=== PATIENT | male | born 1950 | race African-American/Black ===

== ENCOUNTER 2016-06-19 20:40 | Inpatient (IN) | payer OTHER, MEDICAID ==
[~2016-06-19] VITALS: Ht 175.3 cm; Wt 70.8 kg
[2016-06-19 20:49] VITALS: BP 130/78
--- NOTE | 2016-06-19 21:02 | NUR ---
66 Y/O BIBA W/C/O PAIN ON L ABD SIDE S/P FALL. DENIES LOC, ALERT AND ORIENTED X 4. NO S/S OF RESP DISTRESS NOTED AT THE MOMENT. ER MD MADE AWARE.
--- NOTE | 2016-06-19 21:05 | NUR ---
JAMES BLS TO ER BED 1
[2016-06-19] MEDS ORDERED: KETOROLAC 60 MG/2 ML VIAL IM ONE (21:40)
--- NOTE | 2016-06-19 21:50 | NUR ---
PT TAKEN FOR CT SCAN VIA [facility].
--- NOTE | 2016-06-19 22:42 | NUR ---
PT RESTING IN BED, ON MONITOR, NO S/S OF DISTRESS NOTED AT THIS MOMENT. CURRENTLY AWATING FOR CT RESULTS.
[2016-06-19 23:28] LABS: BASOPHILS # (AUTO) 0.1 K/uL (0.00-0.22); EOSINOPHILS # (AUTO) 0.3 K/uL (0-0.4); NEUTROPHILS # (AUTO) 1.3 K/uL (1.8-7.7)
[2016-06-19 23:32] LABS: EOSINOPHILS % (AUTO) 7.1 % (0.0-4.0); HEMATOCRIT 41.7 % (36-52); HEMOGLOBIN 13.7 g/dL (12.0-18.0); LYMPHOCYTES % (AUTO) 44.8 % (20.5-51.1); MEAN CORPUSCULAR HEMOGLOBIN 31 pg (27-31); MEAN CORPUSCULAR HGB CONC 33 g/dL (33-37); MEAN CORPUSCULAR VOLUME 93 fL (80-94); MONOCYTES # (AUTO) 0.6 K/uL (0.8-1.0); MONOCYTES % (AUTO) 14.6 % (1.7-9.3); NEUTROPHILS % (AUTO) 30.5 % (42.2-75.2); PLATELET COUNT (AUTO) 141 K/uL (140-450); RED BLOOD CELL COUNT(AUTO) 4.48 MIL/uL (4.20-6.10); RED CELL DISTRIBUTION WIDTH 12.7 % (11.6-13.7); WHITE BLOOD COUNT (AUTO) 4.3 K/uL (4.8-10.8)
--- NOTE | 2016-06-19 23:35 | NUR ---
MOVED TOP ER BED 5 Addendum: 06/20/16 at 0034 by MEDDM MOVED TO ER BED 5
[2016-06-19 23:38] LABS: ANION GAP 9.1 (8-16); CALCIUM 8.2 mg/dL (8.5-10.1); CREATININE 1.2 mg/dL (0.6-1.3); POTASSIUM 4.1 mmol/L (3.5-5.1)
[2016-06-19 23:44] LABS: ALBUMIN 3.4 g/dL (3.4-5.0); TOTAL BILIRUBIN 0.5 mg/dL (0.0-1.0); TOTAL PROTEIN, SERUM 6.8 g/dL (6.4-8.2)
[2016-06-19 23:47] LABS: PARTIAL THROMBOPLASTIN TIME 27.2 secs (22-35.6); PROTHROMBIN TIME 9.9 secs (10.8-13.4)
[2016-06-19] MEDS ORDERED: ONDANSETRON 4 MG/2 ML VIAL IVP PRN (23:55)
[2016-06-19] MEDS ORDERED: ACETAMINOPHEN 325 MG TAB PO PRN (23:55)
[2016-06-19] MEDS ORDERED: MORPHINE SULFATE 2 MG/ML SYR IVP PRN (23:55)
--- NOTE | 2016-06-20 00:01 | NUR ---
PT UNABLE TO PROVIDE URINE IN ED. PER DR CRISTIN MTAA FOR PT TO PROVIDE WITH URINE SAMPLE ON FLOOR. RECEIVING NURSE WILL BE NOTIFY.
--- NOTE | 2016-06-20 00:05 | NUR ---
Patient will be admitted to care of DR DE OLIVEIRA. Admited to TELE. Will go to room 108B. Belongings list completed. Report to JACQUES MARTINEZ.
--- NOTE | 2016-06-20 00:05 | NUR ---
RECEIVED PT ONTO UNIT IN ROOM 108B. PT AMBULATES WITH CANE AND WITH ASSISTANCE. DENIES DIZZINESS. SHIFT ASSESSMENT DONE AT THIS TIME. PT IS A/O X3, STABLE CONDITION. NO SIGNS OF RESPIRATORY DISTRESS. DENIES CHEST PAIN, SOB, N/V/D, AND OR ANY PAIN AT THIS TIME. VITAL SIGNS ARE STABLE, PT ON ROOM AIR WITH OXYGEN SATURATION AT 99%, RR 18 AND AFEBRILE. LUNG SOUNDS ARE CLEAR, AND BOWEL SOUNDS ARE ACTIVE. SKIN INTACT. RT AC #20G, PATENT AND INTACT. DISCUSSED PLAN OF CARE WITH PT, VERBALIZED UNDERSTANDING. CALL LIGHT PLACED IN REACH. PT ORIENTED TO UNIT. WILL CONTINUE TO MONITOR PT. SAFETY PRECAUTIONS IMPLEMENTED.
[2016-06-20 00:15] VITALS: BP 136/62
[2016-06-20] MEDS ORDERED: BENA20TA PO (01:04)
--- NOTE | 2016-06-20 01:22 | NUR ---
SPOKE TO DR. MANE COVERING FOR [facility], VERIFIED ORDER FOR IVF TO BE 80ML/HR OF 1000ML OF NORMAL SALINE.
[2016-06-20] MEDS: HYDROcodone/APAP 5/325 MG 1 TAB TAB PO PRN ×2 (01:54→14:32)
--- NOTE | 2016-06-20 02:11 | NUR ---
PT SLEEPING, NO DISTRESS NOTED. CALL LIGHT WITHIN REACH. APPLIED SCD'S.
[2016-06-20] MEDS: NACL 0.9% 1,000 ML IV SCH ×3 (02:30→21:47)
--- NOTE | 2016-06-20 03:55 | NUR ---
PT VITAL SIGNS REMAIN STABLE. NO ACUTE DISTRESS NOTED. CALL LIGHT WITHIN REACH.
[2016-06-20 04:00] VITALS: BP 126/70
--- NOTE | 2016-06-20 06:00 | NUR ---
PT SLEEPING AT THIS TIME, NO DISTRESS NOTED. CALL LIGHT WITHIN REACH.
[2016-06-20 06:43] LABS: APPEARANCE,URINE CLOUDY (CLEAR); BLOOD, URINE NEGATIVE (NEGATIVE); COLOR,URINE YELLOW (YELLOW); LEUKOCYTE ESTERASE ,URINE 1+ (NEGATIVE); NITRITE, URINE NEGATIVE (NEGATIVE); PH,URINE 5.5 (5.0-9.0); PROTEIN,URINE NEGATIVE (NEGATIVE); UGLUCOSE NEGATIVE (NEGATIVE); UROBILINOGEN,URINE 0.2 EU/dL (0.2 - 1)
--- NOTE | 2016-06-20 07:10 | NUR ---
ENDORSED PT TO DONALD HANNA AT PT BEDSIDE FOR CONTINUITY OF CARE. PT NOTED STABLE.
[2016-06-20 07:11] LABS: ANION GAP 9.6 (8-16); CALCIUM 7.9 mg/dL (8.5-10.1); CARBON DIOXIDE 27.4 mmol/L (21-32); CREATININE 1.1 mg/dL (0.6-1.3)
[2016-06-20 07:18] LABS: MAGNESIUM 2.1 mg/dL (1.8-2.4); PHOSPHORUS 3.4 mg/dL (2.5-4.9)
[2016-06-20 07:30] LABS: BILIRUBIN,URINE NEGATIVE (NEGATIVE)
--- NOTE | 2016-06-20 07:30 | NUR ---
RECEIVED PT RESTING COMFORTABLY IN BED, AAOX4, ABLE TO VERBALIZE NEEDS; RESPIRATIONS EVEN AND UNLABORED ON ROOM AIR; NO C/O DISTRESS, SOB OR CP AT THIS TIME. IVF INFUSING WELL TO RIGHT AC, SITE ASYMPTOMATIC. ROUTINE/PLAN OF CARE DISCUSSED AND REVIEWED, PT VERBALIZES UNDERSTANDING AND COMPLIANCE. SAFETY PRECAUTIONS OBSERVED AND MAINTAINED. ENCOURAGED PT TO CALL FOR ASSISTANCE NEEDED.
[2016-06-20 07:36] LABS: RBC,URINE 0-5 (RARE) /HPF (0-5); WBC,URINE >25 (MANY) /HPF (0-5)
[2016-06-20 07:37] LABS: BACTERIA,URINE 2+ /HPF (None Seen); MUCUS,URINE 1+ /LPF (None Seen); SQUAMOUS EPITHELIAL CELL,UR >10 (MANY) /LPF (0-3 (FEW)); URINE AMORPHOUS URATE 3+ /HPF (None Seen)
--- NOTE | 2016-06-20 07:54 | NUR ---
PATIENT HAS BEEN SCREENED AND CATEGORIZED MODERATE NUTRITION RISK. PATIENT WILL BE SEEN WITHIN 3-5 DAYS OF ADMISSION. 06/22/16-06/24/[address]
[2016-06-20 08:16] VITALS: BP 141/73
--- NOTE | 2016-06-20 09:15 | NUR ---
VSS; MEDICATED WITH MORPHINE IVP FOR C/O LEFT HIP PAIN, SEE PAIN ASSESSMENT. WILL CONTINUE TO MONITOR.
[2016-06-20 12:42] VITALS: BP 129/72
--- NOTE | 2016-06-20 13:30 | NUR ---
CM NOTE INITIAL REVIEW FAXED TO [facility] / FAX# [phone], ATTN: JENELLE [phone], OPT. 1 PER MILENA, STATION CASHIER, [facility] TO CONTACT CM FOR REVIEWS. REF# [id number]
[2016-06-20 14:31] LABS: AMPHETAMINE, URINE NEG. ng/ml (NEG <=1000); BARBITURATE, URINE NEG. ng/ml (NEG <=200); BENZODIAZEPINE, URINE NEG. ng/mL (NEG <=200); CANNABINOID, URINE POS. ng/mL (NEG <=50); COCAINE, URINE NEG. ng/mL (NEG <=300); OPIATE, URINE NEG. ng/mL (NEG <=2000); PHENCYCLIDINE SCREEN,URINE NEG. ng/mL (NEG <=25)
[2016-06-20 14:33] LABS: CHOL/HDL RATIO 2.3 (1-4.5)
--- NOTE | 2016-06-20 14:35 | NUR ---
ADMINISTERED NORCO ORDERED FOR C/O RECURRING LEFT HIP PAIN, SEE PAIN ASSESSMENT. DISCUSSED ALTERNATIVE MEASURES OF PAIN MANAGEMENT; WILL CONTINUE TO MONITOR.
[2016-06-20 14:42] LABS: FREE T4 (FREE THYROXINE) 1.13 ng/dL (0.76-1.46); THYROID STIMULATING HORMONE 4.2 uIU/mL (0.34-3.76)
--- NOTE | 2016-06-20 14:58 | NUR ---
LAB RESULTS DISCUSSED WITH . NO NEW ORDER RECEIVED AT THIS TIME.
[2016-06-20 16:00] VITALS: BP 121/88
[2016-06-20] MEDS: PNEUMOCOCCAL VACCINE 23 MCG/0.5 ML VIAL IMVAC ONE ×2 (18:10→18:23)
[2016-06-20] MEDS: INFLUENZA VIRUS VACCINE QUAD 0.5 ML SYR IMVAC ONE ×2 (18:10→18:23)
[2016-06-20] MEDS ORDERED: PNEUMOCOCCAL VACCINE 23 MCG/0.5 ML VIAL IMVAC SCH (18:15)
[2016-06-20] MEDS ORDERED: INFLUENZA VIRUS VACCINE QUAD 0.5 ML SYR IMVAC SCH (18:15)
--- NOTE | 2016-06-20 19:23 | NUR ---
CONDITION STABLE, ENDORSED PLAN OF CARE TO [employer] SALES ENGINEER.
--- NOTE | 2016-06-20 19:30 | NUR ---
RECEIVED PT IN STABLE CONDITION FROM ND NURSE. AWAKE,ALERT AND ORIENTED X4. ON TELE MONITOR. NO ACUTE DISTRESS NOTED. DENIES ANY PAIN AT THIS TIME. BRP WITH CANE. PLAN OF CARE DISCUSSED AND VERBALIZED UNDERSTANDING. IVF INFUSING WELL ON THE RT AC #20. CLEAR AND PATENT. CALL LIGHT AND URINAL PLACED WITHIN EASY REACH. WILL CONTINUE TO MONITOR.
[2016-06-20 20:00] VITALS: BP 130/80
--- NOTE | 2016-06-20 21:54 | NUR ---
ROCEPHIN IVPB STARTED ORDERED . WILL MONITOR FOR ANY REACTION.
[2016-06-20] MEDS ORDERED: cefTRIAXone 1,000 MG VIAL ONE (21:55)
--- NOTE | 2016-06-20 22:54 | NUR ---
NO ALLERGIC REACTION NOTED WITH THE ROCEPHIN IV.
[2016-06-21 00:10] VITALS: BP 116/69
[2016-06-21] MEDS: NACL 0.9% 1,000 ML IV SCH ×2 (00:53→14:04)
--- NOTE | 2016-06-21 02:00 | NUR ---
SLEEPING WELL AT THIS TIME. NO S/S FO ANY DISCOMFORT NOTED.
[2016-06-21 04:00] VITALS: BP 123/74
--- NOTE | 2016-06-21 06:00 | NUR ---
PT HAS BEEN STABLE DURING THE NIGHT. NO C/O ANY DISCOMFORT NOR PAIN NOTED.
[2016-06-21 06:43] LABS: ANION GAP 9.9 (8-16); CALCIUM 7.6 mg/dL (8.5-10.1); CARBON DIOXIDE 25.1 mmol/L (21-32)
[2016-06-21 06:49] LABS: ALBUMIN 2.9 g/dL (3.4-5.0); PHOSPHORUS 2.6 mg/dL (2.5-4.9)
[2016-06-21 07:05] LABS: RED BLOOD CELL COUNT(AUTO) 4.26 MIL/uL (4.20-6.10); WHITE BLOOD COUNT (AUTO) 4.6 K/uL (4.8-10.8)
[2016-06-21 07:06] LABS: HEMATOCRIT 39.7 % (36-52); HEMOGLOBIN 12.8 g/dL (12.0-18.0); MEAN CORPUSCULAR HEMOGLOBIN 30 pg (27-31); MEAN CORPUSCULAR HGB CONC 32 g/dL (33-37); MEAN CORPUSCULAR VOLUME 93 fL (80-94); PLATELET COUNT (AUTO) 130 K/uL (140-450); RED CELL DISTRIBUTION WIDTH 12.4 % (11.6-13.7)
--- NOTE | 2016-06-21 07:17 | NUR ---
ENDORSED PT IN STABLE CONDITION TO NURSE.
--- NOTE | 2016-06-21 07:30 | NUR ---
RECEIVED PT RESTING COMFORTABLY IN BED, AAOX4, ABLE TO VERBALIZE NEEDS; RESPIRATIONS EVEN AND UNLABORED ON ROOM AIR; NO C/O DISTRESS, SOB OR CP AT THIS TIME. IVF INFUSING WELL TO L FA, SITE ASYMPTOMATIC. ROUTINE/PLAN OF CARE DISCUSSED AND REVIEWED, PT VERBALIZES UNDERSTANDING AND COMPLIANCE. SAFETY PRECAUTIONS OBSERVED AND MAINTAINED. ENCOURAGED PT TO CALL FOR ASSISTANCE NEEDED.
[2016-06-21 07:59] VITALS: BP 153/75
[2016-06-21 08:14] LABS: BAND % (MANUAL) 1 % (0-8); EOSINOPHILS % (MANUAL) 8 % (0-4); LYMPHOCYTES % (MANUAL) 33 % (20-46); MONOCYTES % (MANUAL) 12 % (5-12); NEUTROPHILS % (MANUAL) 46 (43-65)
[2016-06-21 08:15] LABS: BASOPHILS % (MANUAL) 0 % (0-2)
[2016-06-21 08:17] LABS: PLATELET ESTIMATE SLIGHTLY DECREASED
[2016-06-21] MEDS: BENAZEPRIL 20 MG TAB PO SCH (09:35)
[2016-06-21] MEDS: HYDROcodone/APAP 5/325 MG 1 TAB TAB PO PRN (09:46)
--- NOTE | 2016-06-21 09:52 | NUR ---
VS NOTED; ADMINISTERED ROUTINE MED ORDERED WITH EDUCATION; MEDICATED WITH NORCO PO FOR C/O LEFT HIP PAIN, SEE PAIN ASSESSMENT. DR JARAMILLO ON UNIT TO SEE PATIENT, ORDERS PENDING. WILL CONTINUE TO MONITOR.
--- NOTE | 2016-06-21 10:40 | NUR ---
PT EVALUATED BY DR JARAMILLO, DISCUSSED PT CONDITION AND PLAN OF CARE AT BEDSIDE, ALL QUESTIONS AND CONCERNS ADDRESSED BY MD. NEW ORDERS ACKNOWLEDGED AND CARRIED OUT.
[2016-06-21 12:00] VITALS: BP 128/65
[2016-06-21] MEDS: ALBUTEROL SULFATE/IPRATROPIU 3 ML SOL IH SCH ×2 (13:50→19:00)
--- NOTE | 2016-06-21 14:00 | NUR ---
PT RESTING COMFORTABLY. CONDITION REMAINS STABLE.
--- NOTE | 2016-06-21 14:49 | NUR ---
FAXED CONCURRENT REVIEW TO DENISE BURCIAGA [phone] PHONE [phone]
[2016-06-21 16:00] VITALS: BP 104/62
--- NOTE | 2016-06-21 16:00 | NUR ---
VS NOTED. PT RESTING COMFORTABLY IN BED. PT REMAINS IN STABLE CONDITION.
--- NOTE | 2016-06-21 19:23 | NUR ---
ENDORSED PLAN OF CARE TO NIGHT NURSE. CONDITION STABLE.
[2016-06-21] MEDS: BUDESONIDE 0.5 MG/2 ML NEBU INH SCH (19:29)
--- NOTE | 2016-06-21 19:30 | NUR ---
PATIENT REFUSED HHN THERAPY NO SOB NOTED CHIDI/RN NOTIFIED
--- NOTE | 2016-06-21 19:35 | NUR ---
PATIENT CURRENTLY RESTING IN BED WATCHING TV,DENIES PAIN AND DISCOMFORT,CONTINUES TO USE THE URINAL,AND CONTINUES TO HAVE SCD'S.WILL CONTINUE TO MONITOR.
[2016-06-21 20:00] VITALS: BP 96/57
--- NOTE | 2016-06-21 20:00 | NUR ---
Patient's Plan of Care was discussed and reviewed with VALUATION MANAGER: CHIDI CASTRO
--- NOTE | 2016-06-21 22:30 | NUR ---
PT STABLE WATCHING, TV DENIES PAIN AND DISCOMFORT. NEEDS MET WILL CONTINUE TO MONITOR.
--- NOTE | 2016-06-21 23:50 | NUR ---
PATIENT IS CURRENTLY SLEEPING CONTINUES TO HAVE SCD'S IN PLACE. WILL CONTINUE TO MONITOR.
[2016-06-22 00:22] VITALS: BP 106/59
--- NOTE | 2016-06-22 01:00 | NUR ---
PATIENT IS CURRENTLY RESTING IN BED IN NO DISTRESS WILL CONTINUE TO MONITOR.
[2016-06-22] MEDS: ALBUTEROL SULFATE/IPRATROPIU 3 ML SOL IH SCH ×3 (01:54→12:53)
[2016-06-22] MEDS: NACL 0.9% 1,000 ML IV SCH (03:44)
[2016-06-22] MEDS: HYDROcodone/APAP 5/325 MG 1 TAB TAB PO PRN (03:44)
--- NOTE | 2016-06-22 03:55 | NUR ---
PATIENT STABLE AWAKE PLAYING WITH HIS PHONE AT THIS TIME,IVF INFUSING WELL IV SITE PATENT NO INFILTRATION NOTED WILL CONTINUE TO MONITOR.
[2016-06-22 04:00] VITALS: BP 124/67
--- NOTE | 2016-06-22 06:33 | NUR ---
PATIENT IS SLEEPING IN BED IVF INFUSING WELL.WILL CONTINUE TO MONITOR.CALL LIGHT WITHIN REACH.
[2016-06-22] MEDS: BUDESONIDE 0.5 MG/2 ML NEBU INH SCH (07:26)
--- NOTE | 2016-06-22 07:28 | NUR ---
PT REFUSED BREATHING TX AT THIS TIME. PT IS NOT SOB AND NOT IN RESPIRATORY DISTRESS, B.S CLEAR BILATERALLY.
--- NOTE | 2016-06-22 07:28 | NUR ---
PT STABLE REPORT ENDORSED TO JACQUES NAVARRO AT BEDSIDE.
--- NOTE | 2016-06-22 07:58 | NUR ---
RECEIVED REPORT FROM DAVIS MURILLO AT BEDSIDE. INITIAL ASSESSMENT INITIATED. NOT IN ANY DISTRESS NOTED.LYING IN BED COMFORTABLY. DISCUSSED THE PLAN OF CARE AND VERBALIZED UNDERSTANDING. WILL CONTINUE TO MONITOR.
[2016-06-22 08:04] VITALS: BP 115/62
[2016-06-22] MEDS: BENAZEPRIL 20 MG TAB PO SCH (08:43)
--- NOTE | 2016-06-22 09:00 | NUR ---
DUE MEDICATION GIVEN AND TOLERATED WELL. SEEN BY DR. GERARD WITH ORDER TO D/C PATIENT HOME TODAY.
[2016-06-22] MEDS ORDERED: PUL.5N INH (10:48)
[2016-06-22] MEDS ORDERED: DOCU-67 PO (10:50)
[2016-06-22] MEDS ORDERED: POLYETHYLENE GLYCOL 17 GM/PKT PO SCH (10:50)
--- NOTE | 2016-06-22 10:50 | NUR ---
PATIENT DISCHARGE TO HOME VIA WHEELCHAIR ACCOMPANIED BY , WITH D/C INSTRUCTION GIVEN AND VERBALIZED UNDERSTANDING. IN STABLE CONDITION.
[2016-06-22] MEDS ORDERED: INFLUENZA VIRUS VACCINE QUAD 0.5 ML SYR IMVAC SCH (11:05)
[2016-06-22] MEDS ORDERED: PNEUMOCOCCAL VACCINE 23 MCG/0.5 ML VIAL IMVAC SCH (11:05)
[2016-06-22] MEDS ORDERED: BUDE180P IH (11:38)
[2016-06-22] MEDS ORDERED: LEVO250T2 PO (11:42)
[2016-06-22 12:00] VITALS: BP_SYST 113; BP_SYST 138; BP_DIAS 56; BP_DIAS 66
--- NOTE | 2016-06-22 12:30 | NUR ---
PNA AND FLU VACCINE GIVEN, NO REACTION NOTED. IV AND HEART MONITOR REMOVED.
== END 2016-06-22 12:50 | disposition home or self-care (01) | DRG 189 ==
LOC: MED 20:40 → MTU 23:53
PROVIDERS: ADMIT Family Medicine; ATTEND Family Medicine
DX: J96.00 Acute respiratory failure, unspecified whether with hypoxia or hypercapnia (principal); J44.1 Chronic obstructive pulmonary disease with (acute) exacerbation; N39.0 Urinary tract infection, site not specified; E44.0 Moderate protein-calorie malnutrition; I10 Essential (primary) hypertension; G80.9 Cerebral palsy, unspecified; E02 Subclinical iodine-deficiency hypothyroidism; R91.1 Solitary pulmonary nodule; S20.212A Contusion of left front wall of thorax, initial encounter; F17.210 Nicotine dependence, cigarettes, uncomplicated; F12.90 Cannabis use, unspecified, uncomplicated; W01.0XXA Fall on same level from slipping, tripping and stumbling without subsequent striking against object, initial encounter; Z68.23 Body mass index [BMI] 23.0-23.9, adult; Z71.6 Tobacco abuse counseling; Y93.89 Activity, other specified; Y92.89 Other specified places as the place of occurrence of the external cause; Y99.8 Other external cause status; Z83.3 Family history of diabetes mellitus; Z80.9 Family history of malignant neoplasm, unspecified; Z82.3 Family history of stroke; Z82.49 Family history of ischemic heart disease and other diseases of the circulatory system
CPT/HCPCS: 36415; 71010; 71250; 80048; 80053; 80305; 81001; 82040; 83036; 83690; 83735; 83880; 84100; 84439; 84443; 85025; 85379; 85610; 85730; 87081; 87086; 90658; 90732; 93005; 93971; 96372; 99285; J0696; J1885; J2270; J7030; J7060; J7620; J7626; Q0092

== ENCOUNTER 2018-09-18 08:46 | Emergency (ER) | payer MEDICARE, OTHER ==
[~2018-09-18] VITALS: Ht 175.3 cm; Wt 68.9 kg
[~2018-09-18 08:46] MED LIST: BENA20TA PO; BUDE180P IH; DOCU-299 PO; LEVO250T2 PO
[2018-09-18 08:55] VITALS: BP 142/69
--- NOTE | 2018-09-18 09:02 | NUR ---
BIB SELF. AAO X4. C/O ABSCESS TO PERINEAL AREA X TODAY. PT STATES THAT HE WOKE UP AND PUS AND BLOOD CAME OUT OF THE ABSCESS. PT STATES 9/10 TO PERINEAL AREA. PT STATES URINE OUTPUT OF BROWN COLOR X 4-5 DAYS. PT DENIES DYSURIA, N/V, FEVER. HOB UP. BED SIDE RAILS UP X1. ON LOW BED POSITION, LOCKED. ER MADE AWARE OF PT STATUS.
--- NOTE | 2018-09-18 09:02 | NUR ---
Patient ambulated to bed 7. RN evaluating patient at bedside.
--- NOTE | 2018-09-18 09:02 | NUR ---
Note undone in EDM - 09/18/18 at 0918 by MED BIB SELF. AAO X4. C/O ABSCESS TO R INNER THIGH X TODAY. PT STATES THAT HE WOKE UP AND PUS AND BLOOD CAME OUT OF THE ABSCESS. PT STATES 9/10 TO R INNER THIGH. PT STATES URINE OUTPUT OF BROWN COLOR X 4-5 DAYS. PT DENIES DYSURIA, N/V, FEVER. HOB UP. BED SIDE RAILS UP X1. ON LOW BED POSITION, LOCKED. MD CANTOR MADE AWARE OF PT STATUS.
--- NOTE | 2018-09-18 09:14 | NUR ---
DR BOYER AT BEDSIDE FOR PT EVALUATION
[2018-09-18 09:26] VITALS: BP 142/69
--- NOTE | 2018-09-18 09:26 | NUR ---
Patient discharged with v/s stable. Written and verbal after care instructions given and explained. Patient alert, oriented and verbalized understanding of instructions. Ambulatory with steady gait. All questions addressed prior to discharge. ID band removed. Patient advised to follow up with PMD. Rx of Motrin, Bactrim DS, Keflex given. Patient educated on indication of medication including possible reaction and side effects. Opportunity to ask questions provided and answered.
== END 2018-09-18 09:26 | disposition home or self-care (01) ==
LOC: MED 08:46
DX: L02.214 Cutaneous abscess of groin (principal); N39.0 Urinary tract infection, site not specified; R19.7 Diarrhea, unspecified; I10 Essential (primary) hypertension; F17.200 Nicotine dependence, unspecified, uncomplicated; Z79.899 Other long term (current) drug therapy; Z98.890 Other specified postprocedural states
CPT/HCPCS: 81002; 99283

== ENCOUNTER 2019-04-19 13:03 | Inpatient (IN) | payer OTHER ==
[~2019-04-19] VITALS: Ht 172.7 cm; Wt 70.8 kg
[2019-04-19 13:08] VITALS: BP 152/88
--- NOTE | 2019-04-19 13:13 | NUR ---
PT TAKEN TO BED 9.
--- NOTE | 2019-04-19 13:40 | NUR ---
BIB SISTER C/O SUDDEN ONSET OF LEFT ARM TINGLINESS/ NUMBNESS SINCE FRIDAY. NO INJURY OR PROVOKING ACCIDENT REPORTED. ROM INTACT IN BOTH UPPER EXTREMITIES. NO ARM DRIFT NOTED. PERRLA, 3MM. AAOX4. GCS 15. PATIENT SENSATION IN TACT IN BOTH UPPER EXTREMITIES. OCCIPITAL HEADACHE X 1 DAY, 08/07, NON RADIATING. DENIES SOB, CP. RESPIRATIONS EVEN AND UNLABORED. DR FAM AT BEDSIDE. NKA PMH: CEREBRAL PALSY, HTN
--- NOTE | 2019-04-19 13:57 | NUR ---
LABS DRAWN AT BEDSIDE
[2019-04-19 14:03] LABS: BASOPHILS # (AUTO) 0.1 K/uL (0.00-0.22); EOSINOPHILS # (AUTO) 0.3 K/uL (0-0.4); EOSINOPHILS % (AUTO) 5.7 % (0.0-4.0); HEMATOCRIT 43.5 % (36-52); HEMOGLOBIN 14.4 g/dL (12.0-18.0); LYMPHOCYTES # (AUTO) 1.8 K/uL (2.0-11.5); LYMPHOCYTES % (AUTO) 34.7 % (20.5-51.1); MEAN CORPUSCULAR HEMOGLOBIN 32 pg (27-31); MEAN CORPUSCULAR HGB CONC 33 g/dL (33-37); MEAN CORPUSCULAR VOLUME 96.5 fL (80-94); MONOCYTES # (AUTO) 0.9 K/uL (0.8-1.0); MONOCYTES % (AUTO) 17.3 % (1.7-9.3); NEUTROPHILS # (AUTO) 2.2 K/uL (1.8-7.7); NEUTROPHILS % (AUTO) 41.3 % (42.2-75.2); PLATELET COUNT (AUTO) 180 K/uL (140-450); RED BLOOD CELL COUNT(AUTO) 4.51 MIL/uL (4.20-6.10); RED CELL DISTRIBUTION WIDTH 13.3 % (11.6-13.7); WHITE BLOOD COUNT (AUTO) 5.3 K/uL (4.8-10.8)
[2019-04-19 14:24] LABS: PROTHROMBIN TIME 9.5 secs (10.8-13.4)
[2019-04-19 14:26] LABS: ALBUMIN 3.4 g/dL (3.4-5.0); ANION GAP 13.3 (8-16); ASPARTATE AMINOTRANSFERASE 28 U/L (15-37); CARBON DIOXIDE 27.6 mmol/L (21-32); CHLORIDE 102 mmol/L (98-107); CREATININE 1.2 mg/dL (0.7-1.3); GLUCOSE 98 mg/dL (74-106); POTASSIUM 3.9 mmol/L (3.5-5.1); SODIUM SERUM 139 mmol/L (136-145); TOTAL BILIRUBIN 0.9 mg/dL (0.0-1.0); UREA NITROGEN, BLOOD 16 mg/dL (7-18)
[2019-04-19] MEDS ORDERED: CHOL100013 PO (14:34)
[2019-04-19] MEDS ORDERED: HYDR-5092 PO (14:34)
[2019-04-19] MEDS ORDERED: BENA20TA PO (14:34)
[2019-04-19] MEDS ORDERED: DOCUSATE SODIUM 100 MG GELCAP PO PRN (15:20)
[2019-04-19] MEDS ORDERED: MORPHINE SULFATE 2 MG/ML SYR IVP PRN (15:20)
[2019-04-19] MEDS ORDERED: ACETAMINOPHEN 325 MG TAB PO PRN (15:20)
[2019-04-19] MEDS ORDERED: ONDANSETRON 4 MG/2 ML VIAL IM/IVP PRN (15:20)
[2019-04-19 15:57] LABS: APPEARANCE,URINE CLEAR (CLEAR); BILIRUBIN,URINE NEGATIVE (NEGATIVE); BLOOD, URINE TRACE-I (NEGATIVE); COLOR,URINE YELLOW (YELLOW); LEUKOCYTE ESTERASE ,URINE NEGATIVE (NEGATIVE); NITRITE, URINE NEGATIVE (NEGATIVE); UGLUCOSE NEGATIVE (NEGATIVE)
[2019-04-19 16:03] LABS: BARBITURATE, URINE NEG. ng/ml (NEG <=200); BENZODIAZEPINE, URINE NEG. ng/mL (NEG <=200); CANNABINOID, URINE POS. ng/mL (NEG <=50); COCAINE, URINE NEG. ng/mL (NEG <=300); OPIATE, URINE NEG. ng/mL (NEG <=2000); PHENCYCLIDINE SCREEN,URINE NEG. ng/mL (NEG <=25)
[2019-04-19 16:04] LABS: MAGNESIUM 1.9 mg/dL (1.8-2.4); PHOSPHORUS 2.7 mg/dL (2.5-4.9); THYROID STIMULATING HORMONE 1.69 uIU/mL (0.34-3.74)
--- NOTE | 2019-04-19 16:10 | NUR ---
RECEIVED BEDSIDE REPORT FROM ER NURSE. PATIENT IS AWAKE, ALERT AND ORIENTEDX4. NO SIGNS OF DISTRESS ON RA. SKIN IS INTACT. IV ON R AC 20G, CLEAN, DRY AND INTACT. TELE MONITOR IN PLACE. MRSA NARES SWAB DONE. PATIENT IS AMBULATORY W CANE, FALL RISK PROTOCOL IN PLACE. CONTINENT. ABLE TO MAKE NEEDS KNOWN. BED IN LOW POSITION.CALL LIGHT WITHIN REACH. ALL ADMISSION QUESTIONS ANSWERED. WILL CONTINUE TO MONITOR THE PATIENT
--- NOTE | 2019-04-19 16:23 | NUR ---
Patient will be admitted to care of REYES. Admited to MED SURG TELE. Will go to room 121 A. Belongings list completed. Report to DALIA HANNA.
[2019-04-19] MEDS ORDERED: MECLIZINE 25 MG TAB PO PRN (16:40)
[2019-04-19 17:02] VITALS: BP 153/104
--- NOTE | 2019-04-19 17:25 | NUR ---
PATIENT WENT TO CT W PERSONNEL SECURITY ASSISTANT. WILL MONITOR WHEN HE ARRIVES BACK
[2019-04-19] MEDS: NACL 0.9% 1,000 ML IV SCH (17:59)
--- NOTE | 2019-04-19 18:13 | NUR ---
ADMINISTERED MEDS. EDUCATED ON MEDS. WILL CONTINUE TO MONITOR
[2019-04-19] MEDS ORDERED: BENAZEPRIL 20 MG TAB PO SCH (18:30)
--- NOTE | 2019-04-19 19:09 | NUR ---
ENDORSED ORTHO VITALS TO TEMPORARY DATA ENTRY CLERK NURSE. PATIENT WAS GETTING US DONE, THEN WENT TO CT, THEN WANTED TO EAT. UNABLE TO ASSESS ON MY SHIFT. GAVE BEDSIDE REPORT TO TEMPORARY DATA ENTRY CLERK, PATIENT ENDORSED IN STABLE CONDITION
--- NOTE | 2019-04-19 19:09 | NUR ---
RECEIVED PATIENT IN STABLE CONDITION FROM AM NURSE FOR CONTINUITY OF CARE.
[2019-04-19] MEDS: HYDROcodone/APAP 5/325 MG 1 TAB TAB PO PRN (19:43)
--- NOTE | 2019-04-19 19:43 | NUR ---
PATIENT C/O ACHING BACK PAIN 09/07. MEDICATED ORDERED. CALL LIGHT WITHIN REACH. WILL CONTINUE TO MONITOR.
[2019-04-19 19:46] VITALS: BP_SYST 102; BP_SYST 113; BP_SYST 123; BP_DIAS 62; BP_DIAS 69; BP_DIAS 76
--- NOTE | 2019-04-19 19:46 | NUR ---
ORTHO VITALS COMPLETED AND DOCUMENTED. PATIENT IS NOT IN ANY DISTRESS AT THIS TIME. CALL LIGHT WITHIN REACH. WILL CONTINUE TO MONITOR.
--- NOTE | 2019-04-19 20:43 | NUR ---
PATIENT RESTING IN BED IN STABLE CONDITION. NO C/O PAIN. NO S/SX ACUTE DISTRESS. CALL LIGHT WITHIN REACH. WILL CONTINUE TO MONITOR.
--- NOTE | 2019-04-19 22:50 | NUR ---
PATIENT ASLEEP. NO C/O PAIN. NO S/SX ACUTE DISTRESS. CALL LIGHT WITHIN REACH. WILL CONTINUE TO MONITOR.
[2019-04-20] VITALS: BP 99/50
--- NOTE | 2019-04-20 01:00 | NUR ---
MADE ROUNDS. PATIENT ASLEEP IN BED. NO C/O PAIN. NO S/SX ACUTE DISTRESS. CALL LIGHT WITHIN REACH. WILL CONTINUE TO MONITOR.
--- NOTE | 2019-04-20 02:12 | NUR ---
PATIENT ASLEEP. NO C/O PAIN. NO S/SX ACUTE DISTRESS. CALL LIGHT WITHIN REACH. WILL CONTINUE TO MONITOR.
[2019-04-20] MEDS: NACL 0.9% 1,000 ML IV SCH ×2 (03:50→09:47)
[2019-04-20 04:00] VITALS: BP 100/55
--- NOTE | 2019-04-20 04:23 | NUR ---
PATIENT AWAKE WATCHING TV. NO C/O PAIN. NO S/SX ACUTE DISTRESS. CALL LIGHT WITHIN REACH. WILL CONTINUE TO MONITOR.
[2019-04-20] MEDS: HYDROcodone/APAP 5/325 MG 1 TAB TAB PO PRN (05:00)
--- NOTE | 2019-04-20 05:00 | NUR ---
PATIENT C/O ACHING BACK PAIN 09/07. MEDICATED ORDERED. CALL LIGHT WITHIN REACH. WILL CONTINUE TO MONITOR.
--- NOTE | 2019-04-20 06:00 | NUR ---
PATIENT ASLEEP. NO C/O PAIN. NO S/SX ACUTE DISTRESS. CALL LIGHT WITHIN REACH. WILL CONTINUE TO MONITOR.
[2019-04-20 06:50] LABS: CHOL/HDL RATIO 2.4 (1-4.5)
--- NOTE | 2019-04-20 07:15 | NUR ---
ENDORSED PATIENT IN STABLE CONDITION TO AM SHIFT FOR CONTINUITY OF CARE.
--- NOTE | 2019-04-20 07:16 | NUR ---
RECEIVED BEDSIDE REPORT FROM CO PILOT NURSE. PATIENT IS AWAKE, ALERT AND ORIENTEDX4. NO SIGNS OF DISTRESS ON RA. SKIN IS INTACT. TELE MONITOR IN PLACE. IV ON R AC 20G INFUSING NS AT 80. CLEAN, DRY AND INTACT, AMBULATES W CANE. FALL RISK PROTOCOL IN PLACE. CONTINENT. BED IN LOW POSITION. CALL LIGHT WITHIN REACH. WILL CONTINUE TO MONITOR
[2019-04-20 08:00] VITALS: BP 113/61
[2019-04-20 08:10] LABS: T4 (THYROXINE) 9.7 ug/dL (4.5-12.0)
--- NOTE | 2019-04-20 08:41 | NUR ---
PATIENT HAS BEEN SCREENED AND CATEGORIZED MODERATE NUTRITION RISK. PATIENT WILL BE SEEN WITHIN 3-5 DAYS OF ADMISSION. 04/22/19 04/24/[address]
[2019-04-20] MEDS: CHOLECALCIFEROL 1,000 IU TAB PO SCH (09:43)
[2019-04-20] MEDS: BENAZEPRIL 20 MG TAB PO SCH (09:43)
--- NOTE | 2019-04-20 09:56 | NUR ---
ADMINISTERED MEDS. PATIENT TOLERATED WELL. NO SIGNS OF DISTRESS. EDUCATED ON MEDS. FAMILY AT BEDSIDE. WILL CONTINUE TO MONITOR THE PATIENT.
--- NOTE | 2019-04-20 11:12 | NUR ---
Shift Mechanic Note: Basic Screen: Yes High Risk DC Screen Seven Fields: KAYLEEN VENEGAS [place] Relationship: SISTER Pre-Admission Living Arrangements: Lives with Other Prior ADL Independent Current Home Health Name/Tel: N/A Current DME/02 Name/Tel: [facility] Current Hospice Name/Tel: N/A Current Dialysis Name/Tel: N/A Healthcare Decision Maker: Patient Advance Directive No Physician Orders for Life Sustaining Treatment Form No Patient/Family Have Educational Needs No Information Taught: Advance Directive Community Resources Person Taught: Patient Teaching Tools: Verbal Factors Affecting Learning: None Participation Level: Refused Evaluation: Verbalizes Understanding Needs Additional Education: No Discipline: Case Mgt/Social Svcs Tentative Discharge Plan/Destination: No Needs Identified Will require assistance post discharge: No Referred to Sofa Back Upholsterer: No Tentative Discharge Plan Summary: Patient is a 69-year-old male admitted for numbness. Patient has PMHX of cerebral palsy, hypertension, and vitamin D deficiency. Patient was admitted from home where he lives with his sister. SW met with patient at bedside to verify demographics. Patient reported no history of mental health and no history of substance abuse. Patient's tentative discharge plan is to return home. No further needs identified. Signature: ES Do Date: Apr 20, 2019 Time: 11:10
--- NOTE | 2019-04-20 11:50 | NUR ---
PATIENT IS WATCHING TV. NO SIGNS OF DISTRESS. WILL CONTINUE TO MONITOR THE PATIENT
[2019-04-20 12:00] VITALS: BP 102/54
--- NOTE | 2019-04-20 13:20 | NUR ---
PATIENT DISCONNECTED AND LEFT TO GO TO CT WITH CT TECHS. PATIENT LEFT IN STABLE CONDITION
--- NOTE | 2019-04-20 14:49 | NUR ---
PATIENT GETTING ECHO DONE AT THIS TIME. PATIENT UNDERSTANDS HE NEEDS TO BE NPO UNTIL AFTER US OF LIVER IS DONE. ULTRASOUND WILL DO IT AT 1999
[2019-04-20 16:00] VITALS: BP 92/62
--- NOTE | 2019-04-20 16:20 | NUR ---
PATIENT IN NO DISTRESS, RESTING IN BED. WILL CONTINUE TO MONITOR THE PATIENT
--- NOTE | 2019-04-20 18:14 | NUR ---
PATIENT RESTING IN BED. NO SIGNS OF DISTRESS. WILL CONTINUE TO MONITOR THE PATIENT
--- NOTE | 2019-04-20 19:05 | NUR ---
GAVE BEDSIDE REPORT TO BUSINESS SYSTEMS LEAD NURSE. PATIENT ENDORSED IN STABLE CONDITION
--- NOTE | 2019-04-20 19:06 | NUR ---
RECEIVED BEDSIDE REPORT FROM AM SHIFT NURSE. NO SOB OR DISTRESS NOTED. ON ROOM AIR. IV ACCESS ON RIGHT AC 20 GAUGE, PATENT, INTACT AND INFUSING WELL. INITIAL ASSESSMENT DONE. SKIN INTACT. EDEMA NOTED ON LEFT FOOT. PATIENT IS AMBULATORY WITH A CANE. BED IN LOW, SAFETY MEASURES IN PLACE. CALL LIGHT PLACED WITHIN PATIENT REACH. WILL CONTINUE TO MONITOR PATIENT.
[2019-04-20 20:10] VITALS: BP 132/69
--- NOTE | 2019-04-20 22:00 | NUR ---
ROUNDS DONE. PATIENT RESTING COMFORTABLY WITH EYES CLOSED. WILL CONTINUE TO MONITOR PATIENT.
[2019-04-21] VITALS (7 sets, daily range): BP systolic 111–136; BP diastolic 57–71
--- NOTE | 2019-04-21 00:45 | NUR ---
VITALS TAKEN AT THIS TIME. NO DISTRESS NOTED. WILL CONTINUE TO MONITOR PATIENT.
--- NOTE | 2019-04-21 04:20 | NUR ---
VITAL SIGNS DONE AT THIS TIME. NO DISTRESS NOTED. WILL CONTINUE TO MONITOR PATIENT.
[2019-04-21] MEDS: NACL 0.9% 1,000 ML IV SCH ×2 (04:50→17:29)
--- NOTE | 2019-04-21 06:30 | NUR ---
PATIENT HAD A SEIZURE AT THIS TIME FOR 20 SECONDS. PLACED PATIENT ON LEFT SIDE. PATIENT VITALS BP-136/71, HR 81, TEMP 98, O2 93%. MD AND RT NOTIFIED. ORDERS GIVEN TO GIVE PRN ATIVAN 2MG IV PUSH. RT PUT PATIENT ON VENTURI MASK ON O2 99% ON 15LPM VENTURI MASK. PATIENT BLOOD GLUCOSE 96.
[2019-04-21] MEDS ORDERED: LORazepam 2 MG/ML VIAL ONE (06:33)
[2019-04-21] MEDS ORDERED: LORazepam 2 MG/ML VIAL IVP PRN (06:35)
--- NOTE | 2019-04-21 06:36 | NUR ---
PATIENT OPENED EYES AND SHOOK HEAD BUT IS NOT SPEAKING. PATIENT IS LETHARGIC AT THIS TIME.
--- NOTE | 2019-04-21 06:45 | NUR ---
MD AT BEDSIDE ASSESSING PATIENT AT THIS TIME. PATIENT PUT BACK ON TELE MONITORING.
--- NOTE | 2019-04-21 07:28 | NUR ---
PATIENT IN STABLE CONDITION. CALL LIGHT PLACED WITHIN PATIENT REACH. ENDORSED TO AM SHIFT NURSE FOR CONTINUITY OF CARE.
--- NOTE | 2019-04-21 07:30 | NUR ---
RECEIVE REPORT FROM NIGHT NURSE, PT IS ASLEEP IN BED, PT IS STABLE, SAFETY MEASURES IN PLACE, WILL CONTINUE TO MONITOR
[2019-04-21 08:42] LABS: BASOPHILS % (AUTO) 0.8 % (0.0-2.0); EOSINOPHILS # (AUTO) 0.2 K/uL (0-0.4); EOSINOPHILS % (AUTO) 4.6 % (0.0-4.0); HEMATOCRIT 43.1 % (36-52); HEMOGLOBIN 14.2 g/dL (12.0-18.0); LYMPHOCYTES # (AUTO) 0.7 K/uL (2.0-11.5); LYMPHOCYTES % (AUTO) 17.3 % (20.5-51.1); MEAN CORPUSCULAR HEMOGLOBIN 32 pg (27-31); MEAN CORPUSCULAR HGB CONC 33 g/dL (33-37); MEAN CORPUSCULAR VOLUME 96.6 fL (80-94); MONOCYTES # (AUTO) 0.5 K/uL (0.8-1.0); MONOCYTES % (AUTO) 12.6 % (1.7-9.3); NEUTROPHILS # (AUTO) 2.5 K/uL (1.8-7.7); NEUTROPHILS % (AUTO) 64.7 % (42.2-75.2); PLATELET COUNT (AUTO) 150 K/uL (140-450); RED BLOOD CELL COUNT(AUTO) 4.47 MIL/uL (4.20-6.10); RED CELL DISTRIBUTION WIDTH 13.2 % (11.6-13.7); WHITE BLOOD COUNT (AUTO) 3.9 K/uL (4.8-10.8)
[2019-04-21 09:09] LABS: ANION GAP 17.5 (8-16); CARBON DIOXIDE 20.8 mmol/L (21-32); CHLORIDE 107 mmol/L (98-107); CREATININE 1.2 mg/dL (0.7-1.3); GLUCOSE 84 mg/dL (74-106); POTASSIUM 4.3 mmol/L (3.5-5.1); SODIUM SERUM 141 mmol/L (136-145); UREA NITROGEN, BLOOD 16 mg/dL (7-18)
[2019-04-21 09:14] LABS: ASPARTATE AMINOTRANSFERASE 33 U/L (15-37); TOTAL BILIRUBIN 0.4 mg/dL (0.0-1.0)
[2019-04-21] MEDS: BENAZEPRIL 20 MG TAB PO SCH (09:38)
[2019-04-21] MEDS: CHOLECALCIFEROL 1,000 IU TAB PO SCH (09:39)
--- NOTE | 2019-04-21 09:44 | NUR ---
GAVE PT ORDERED MEDICATION, EDUCATION GIVEN, PT IS AWAKE, FAMILY AT BEDSIDE, PT TOLERATED MEDS WELL, PT IS STABLE, CALL LIGHT WITHIN REACH.
--- NOTE | 2019-04-21 09:58 | NUR ---
GAVE REPORT TO NURSE RODRIGUEZ PT IS TELE NOT MED SURG, PT IS STABLE
--- NOTE | 2019-04-21 10:00 | NUR ---
RECEIVED BEDSIDE FROM JACQUES ISRAEL FOR CONTINUITY OF ARE, PT IS IN STABLE CONDITION. VISITOR IS BY BEDSIDE. TELE MONITOR ATTACHED. SAFETY MEASURES IN PLACE. BED ALARM ACTIVATED.
--- NOTE | 2019-04-21 10:28 | NUR ---
PT IS IN EEG WITH ANGULAR DEVELOPER. VISITOR IS BY BEDSIDE. TELE MONITOR ATTACHED. NO SIGNS OF DISTRESS NOTED. SAFETY MEASURES IN PLACE.
--- NOTE | 2019-04-21 11:40 | NUR ---
PT AWAKE AND TALKING TO FAMILY AT BEDSIDE. UPDATED FAMILY WITH PT'S CURRENT CONDITION. NO SIGNS OF DISTRESS NOTED. TELE MONITOR ATTACHED. SAFETY MEASURES IN PLACE. BED ALARM ACTIVATED.
--- NOTE | 2019-04-21 13:15 | NUR ---
DR SOLIS IS ASSESSING AND TALKING TO PT AT BEDSIDE. NO SIGNS OF DISTRESS NOTED. TELE MONITOR ATTACHED. SAFETY MEASURES IN PLACE. BED ALARM ACTIVATED.
--- NOTE | 2019-04-21 15:32 | NUR ---
PT AWAKE AND WATCHING TV ON BED AT THIS TIME. DENIED PAIN, SOB AND DIZZINESS. NO SIGNS OF DISTRESS NOTED. TELE MONITOR ATTACHED. SAFETY MEASURES IN PLACE. BED IN LOW POSITION AND CALL LIGHT WITHIN REACH. BED ALARM ACTIVATED.
[2019-04-21] MEDS ORDERED: levETIRAcetam 1,000 MG in NACL 0.9% 100 ML IV SCH (16:00)
--- NOTE | 2019-04-21 16:12 | NUR ---
ADMINISTERED KEPPRA VIA IVPB PER MD ORDER, MED ED PROVIDED TO PT AND PT VERBALIZED UNDERSTANDING. PT AWAKE AND RESTING ON BED AT THIS TIME. NO SIGNS OF DISTRESS NOTED. TELE MONITOR ATTACHED. SAFETY MEASURES IN PLACE. BED IN LOW POSITION AND CALL LIGHT WITHIN REACH. BED ALARM ACTIVATED.
--- NOTE | 2019-04-21 16:27 | NUR ---
DC PLANNING CALLED DERRICK BLANK AT [facility] [phone] STATED NO NEED TO TRANSFER TO THE CONTRACTED FACILITY AND PROVIDE THE AUTH FOR INPT. [id number] FAXED THE POST STABILIZATION FORM TO [phone]
--- NOTE | 2019-04-21 17:29 | NUR ---
PT AWAKE AND RESTING ON BED AT THIS TIME. DENIED SOB, DIZZINESS AND PAIN. NO SIGNS OF DISTRESS NOTED. TELE MONITOR ATTACHED. SAFETY MEASURES IN PLACE. BED IN LOW POSITION AND CALL LIGHT WITHIN REACH. BED ALARM ACTIVATED.
--- NOTE | 2019-04-21 19:52 | NUR ---
PT IS AWAKE AND PLAYING ON HIS PHONE AT THIS TIME. RESPIRATION EVEN AND UNLABORED ON RA. DENIED PAIN, SOB AND DIZZINESS. NO SIGNS OF DISTRESS NOTED. SAFETY MEASURES IN PLACE. BED IN LOW POSITION AND CALL LIGHT WITHIN REACH. FALL RISK PROTOCOL IN PLACE AND BED ALARM ACTIVATED. INSTRUCTED PT TO USE THE CALL LIGHT FOR ANY ASSISTANCE AND PT SAID OK.
[2019-04-21] MEDS: levETIRAcetam 500 MG TAB PO SCH (21:03)
--- NOTE | 2019-04-21 21:04 | NUR ---
ADMINISTERED SCHEDULED MEDS PER MD ORDER, MEDS EDUCATION PROVIDED TO PT AND PT VERBALIZED UNDERSTANDING. PT TOLERATED MEDS WELL. DENIED PAIN, SOB AND DIZZINESS. APPLIED HEATING PAD ON LOWER BACK WITH ASSIST FROM EVENT SALES ASSISTANT. TELE MONITOR ATTACHED. SAFETY MEASURES IN PLACE. BED IN LOW POSITION AND CALL LIGHT WITHIN REACH. BED ALARM ACTIVATED. INSTRUCTED PT TO USE THE CALL LIGHT FOR ANY ASSISTANCE AND PT WAS AWARE.
--- NOTE | 2019-04-21 23:26 | NUR ---
ENDORSED PT AT BEDSIDE TO CHARGE NURSE DARSHAN FOR CONTINUITY OF CARE. PT AWAKE AND PLAYING WITH HIS PHONE ON BED. NO SIGNS OF DISTRESS NOTED. PT IS IN STABLE CONDITION. TELE MONITOR ATTACHED. SAFETY MEASURES IN PLACE. BED IN LOW POSITION AND CALL LIGHT WITHIN REACH. BED ALARM ACTIVATED.
--- NOTE | 2019-04-21 23:27 | NUR ---
RECEIVED PT FROM JANNA RN PT IS AAOX4 ON BED REST, ON TELEMETRY SR IV ON RT ARM INFUSING WELL NOT DISTRESS NOTED INITIAL ASSESSMENT DONE
[2019-04-22] VITALS: BP 130/67
--- NOTE | 2019-04-22 01:00 | NUR ---
PT SLEEPING WELL NOT DISTRESS NOTED ON TELEMETRY SB REPOSITIONED Q2H
[2019-04-22 04:00] VITALS: BP 102/75
--- NOTE | 2019-04-22 04:00 | NUR ---
PT REPOSITIONED SPINGE BATH GIVEN LINEN CHANGED IV ON RT AC INFUSING WELL ON TELE SB
[2019-04-22 06:03] LABS: BASOPHILS % (AUTO) 0.7 % (0.0-2.0); EOSINOPHILS # (AUTO) 0.2 K/uL (0-0.4); EOSINOPHILS % (AUTO) 4.5 % (0.0-4.0); HEMATOCRIT 40.4 % (36-52); HEMOGLOBIN 13.5 g/dL (12.0-18.0); LYMPHOCYTES # (AUTO) 1.4 K/uL (2.0-11.5); LYMPHOCYTES % (AUTO) 30.8 % (20.5-51.1); MEAN CORPUSCULAR HEMOGLOBIN 32 pg (27-31); MEAN CORPUSCULAR HGB CONC 34 g/dL (33-37); MEAN CORPUSCULAR VOLUME 95.7 fL (80-94); MONOCYTES # (AUTO) 0.8 K/uL (0.8-1.0); MONOCYTES % (AUTO) 17.1 % (1.7-9.3); NEUTROPHILS # (AUTO) 2.2 K/uL (1.8-7.7); NEUTROPHILS % (AUTO) 46.9 % (42.2-75.2); PLATELET COUNT (AUTO) 152 K/uL (140-450); RED BLOOD CELL COUNT(AUTO) 4.22 MIL/uL (4.20-6.10); RED CELL DISTRIBUTION WIDTH 13.1 % (11.6-13.7); WHITE BLOOD COUNT (AUTO) 4.6 K/uL (4.8-10.8)
--- NOTE | 2019-04-22 06:30 | NUR ---
PT WILL BE ENDORSED TO DAYS SHIFT NURSE FOR CONTINUE OF CARE
[2019-04-22 06:49] LABS: ANION GAP 12.7 (8-16); CARBON DIOXIDE 25.5 mmol/L (21-32); CHLORIDE 107 mmol/L (98-107); CREATININE 1.1 mg/dL (0.7-1.3); GLUCOSE 81 mg/dL (74-106); POTASSIUM 4.2 mmol/L (3.5-5.1); SODIUM SERUM 141 mmol/L (136-145); UREA NITROGEN, BLOOD 14 mg/dL (7-18)
[2019-04-22 06:57] LABS: MAGNESIUM 1.9 mg/dL (1.8-2.4); PHOSPHORUS 2.4 mg/dL (2.5-4.9)
[2019-04-22] MEDS: NACL 0.9% 1,000 ML IV SCH (07:20)
--- NOTE | 2019-04-22 07:20 | NUR ---
BEDSIDE REPORT RECIEVED FROM COATING MACHINE FEEDER NURSE, PT RESTING QUIETLY IN NO ACUTE DISTRESS, RESP EVEN UNLABORED, SKIN WARM DRY COLOR WNL FOR RACE, AOX4, PT DENIES PAIN OR DISCOMFORT, POC REVIEWED, PT DENIES ANY NEEDS, NO SZ ACTIVITY NOTED, SZ PREC AND ALL SAFETY PRECAUTIONS IN PLACE, WILL CONTINUE TO [facility].
--- NOTE | 2019-04-22 07:58 | NUR ---
DR REYES AND MED TEAM AT BEDSIDE.
[2019-04-22 08:00] VITALS: BP 122/86
[2019-04-22] MEDS: BENAZEPRIL 20 MG TAB PO SCH (08:16)
[2019-04-22] MEDS: CHOLECALCIFEROL 1,000 IU TAB PO SCH (08:16)
[2019-04-22] MEDS: levETIRAcetam 500 MG TAB PO SCH (08:16)
--- NOTE | 2019-04-22 08:22 | NUR ---
AM MEDS GIVEN, PT JULITO PILLS WELL, EATING BREAKFAST ON HIS OWN, DENIES ANY NEEDS, WLL CONTINUE TO MONITOR.
[2019-04-22] MEDS ORDERED: LEVE750T25 PO (09:22)
--- NOTE | 2019-04-22 10:30 | NUR ---
PHYSICAL THERAPY AT BEDSIDE.
[2019-04-22] MEDS: HYDROcodone/APAP 5/325 MG 1 TAB TAB PO PRN (11:05)
--- NOTE | 2019-04-22 11:35 | NUR ---
DISCHARGE INSTRUCTIONS GIVEN AND EXPLAINED TO PT, PT VERBALIZED FULL UNDERSTANDING, IV DC'D, CATH TIP INTACT, BLEEDING CONTROLLED, PT JULITO WELL, PT DECLINED OFFER TO ASSIST WITH CHANGING CLOTHES, AWAITING FOR SISTER TO PICK HIM UP.
--- NOTE | 2019-04-22 12:45 | NUR ---
PT ESCORTED OUT TO LOBBY IN WHEELCHAIR, PT AWAITING SISTER.
== END 2019-04-22 12:55 | disposition home or self-care (01) | DRG 74 ==
LOC: MED 13:03 → MTU 15:20
PROVIDERS: ADMIT General Practice; ATTEND General Practice
PROC: 4A00X4Z Measurement of Central Nervous Electrical Activity, External Approach (ICD-10-PCS; principal; 2019-04-21)
DX: G90.8 Other disorders of autonomic nervous system (principal); E44.0 Moderate protein-calorie malnutrition; G80.9 Cerebral palsy, unspecified; R56.9 Unspecified convulsions; I10 Essential (primary) hypertension; F17.290 Nicotine dependence, other tobacco product, uncomplicated; E55.9 Vitamin D deficiency, unspecified; I35.1 Nonrheumatic aortic (valve) insufficiency; M46.1 Sacroiliitis, not elsewhere classified; M47.812 Spondylosis without myelopathy or radiculopathy, cervical region; Z68.23 Body mass index [BMI] 23.0-23.9, adult; Z79.899 Other long term (current) drug therapy; Z82.49 Family history of ischemic heart disease and other diseases of the circulatory system; Z83.3 Family history of diabetes mellitus; Z82.3 Family history of stroke
CPT/HCPCS: 36415; 70450; 70491; 71045; 71260; 72125; 76705; 80048; 80053; 80305; 81003; 82948; 83036; 83735; 83880; 84100; 84436; 84443; 84484; 85025; 85379; 85610; 85730; 87081; 93005; 93880; 97112; 97116; 97161-GP; 97530; 99285; J1644; J1953; J2060; J7030; Q0092; Q9967